=== PATIENT | male | born 1975 | race Caucasian/White ===

== ENCOUNTER 2020-04-27 00:09 | Emergency (ER) | payer SELFPAY ==
[~2020-04-27] VITALS: Ht 177.8 cm; Wt 80.3 kg
--- NOTE | 2020-04-27 00:20 | NUR ---
PT BIBRA C/O BACK PAIN. PT STATES HE HAS PREVIOUS INJURY TO L RIB AND FEELS THE PAIN RADIATE TO BACK " IF I'M WEARING A TIGHT BELT". PT AAOX4. RESPIRATIONS EVEN AND UNLABORED. VITAL SIGNS STABLE. NO ACUTE DISTRESS NOTED AT THIS TIME. WILL CONTINUE TO MONITOR.
[2020-04-27] MEDS ORDERED: CARISOPRODOL 350 MG TABLET ONE (00:28)
[2020-04-27] MEDS ORDERED: KETOROLAC TROMETHAMINE INJ 60 MG/2 ML VIAL IM ONE ×2 (00:28→00:30)
[2020-04-27] MEDS ORDERED: CARISOPRODOL 350 MG TABLET PO ONE (00:30)
[2020-04-27] MEDS ORDERED: diphenhydrAMINE HCL 25 MG CAPSULE ONE (01:03)
--- NOTE | 2020-04-27 01:04 | NUR ---
NOTED HIVES BILATERAL UPPER AND LOWER EXTREMITIES +ITCHING. -SOB. PER VERBAL MD ORDER, WILL ADMINSITER 25MG PO BENADRYL X1 NOW
[2020-04-27] MEDS ORDERED: diphenhydrAMINE HCL 25 MG CAPSULE PO ONE (01:30)
[2020-04-27 02:32] VITALS: BP 113/72
== END 2020-04-27 02:32 | disposition home or self-care (01) ==
LOC: ER 00:18
DX: M54.6 Pain in thoracic spine (principal); L50.0 Allergic urticaria; Z88.6 Allergy status to analgesic agent
CPT/HCPCS: 96372; 99283; J1885; Q0163